=== PATIENT | female | born 1990 | race African-American/Black ===

== ENCOUNTER 2016-08-11 08:56 | Emergency (ER) | payer MEDICAID ==
[~2016-08-11] VITALS: Ht 165.1 cm; Wt 105.0 kg
[~2016-08-11 08:56] MED LIST: AUGM875T PO
[2016-08-11 08:57] VITALS: BP 139/74; PULSE 85; RESP 15; TEMP 98.1; O2SAT 100
--- NOTE | 2016-08-11 09:36 | PD ---
HPI Chief Complaint: Lump, Cyst, Hernia Time Seen by Provider: 09:31 Travel History International Travel<30 days: No Contact w/Intl Traveler<30days: No Traveled to known affect area: No History of Present Illness HPI 26-year-old female presents to the emergency Department with complaint of a lump under her right breast that is painful that she noticed last night. She denies fever, chills, nausea, vomiting. Denies nipple discharge, change in skin of the breast. Has not taken any medications or tried any treatments to alleviate her symptoms. Pain is aggravated with movement of the breast and palpation. No known relieving factors. No known allergies. Does not have primary care provider. Currently has Mirena for contraception. Denies significant past medical history. No other modifying factors or associated signs and symptoms. PFSH Past Medical History ?: Not LMP: 07/30/16 Social History Alcohol Use: Yes Tobacco Use: Yes Allergies-Medications (Allergen,Severity, Reaction): Coded Allergies: No Known Allergies (Unverified , 08/11/16) Reported Meds & Prescriptions Reported Meds & Active Scripts Active Bactrim DS (Sulfamethoxazole-Trimethoprim) 800-160 Mg Tab 1 Tab PO BID 10 Days Ibuprofen 800 Mg Tab 800 Mg PO Q6HR PRN Keflex (Cephalexin) 500 Mg Cap 500 Mg PO Q6H 10 Days Review of Systems Except as stated in HPI: all other systems reviewed are Neg Physical Exam Narrative GENERAL: Well-nourished, well-developed female patient, in no acute distress; afebrile, nontoxic-appearing SKIN: There is an indurated area to the lower crease of the right breast at approximately the 6 o'clock position which measures about 2 cm in diameter. The area is without erythema. With tenderness on palpation. No nipple discharge. No skin dimpling. No axillary lymphadenopathy. HEAD: Atraumatic. Normocephalic. EYES: Pupils equal and round. No scleral icterus. No injection or drainage. ENT: Mucosa pink and moist. Airway patent. NECK: Trachea midline. CARDIOVASCULAR: Regular rate. RESPIRATORY: No accessory muscle use. GASTROINTESTINAL: Obese. MUSCULOSKELETAL: No obvious deformities. No clubbing. No cyanosis. No edema. NEUROLOGICAL: Awake and alert. Oriented 3. No obvious cranial nerve deficits. Motor grossly within normal limits. Normal speech. PSYCHIATRIC: Appropriate mood and affect; insight and judgment normal. Data Data Last Documented VS Vital Signs Date Time Temp Pulse Resp B/P Pulse Ox O2 Delivery O2 Flow Rate FiO2 08/11/16 11:39 20 08/11/16 08:57 98.1 85 139/74 100 Orders Ibuprofen (Motrin) (08/11/16 09:45) Us Breast Unilateral (08/11/16 ) Lidocaine 1% Inj (50 Ml) (Xylocaine 1% I (08/11/16 11:30) Wound Culture And Gram Stain (08/11/16 12:34) [facility] Medical Decision Making Medical Screen Exam Complete: Yes Emergency Medical Condition: Yes Medical Record Reviewed: Yes Differential Diagnosis Abscess, cyst, malignancy Narrative Course 26-year-old female with approximately 2 cm palpable lump to the 6 o'clock position of the underneath of the right breast at this crease. The areas without erythema or edema. Patient is afebrile and nontoxic-appearing. She denies fever, chills, nausea, vomiting at home. Ibuprofen administered in the ER. Right breast ultrasound ordered. 1128: Right breast ultrasound concludes a palpable abnormality that corresponds to a small hematoma or abscess; recommended treatment and follow-up to resolution with scan in 3-4 weeks. It with my attending physician, Dr. Ennis, and he recommended to needle aspiration to rule out hematoma or abscess. See my procedure note for needle aspiration. 1140: Purulent drainage aspirated during procedure. Wound culture pending. Keflex, Bactrim, ibuprofen prescribed for home. Instructed patient to follow up with general surgery and she verbalized understanding and agreement. Patient is medically cleared and stable for discharge. Discussed reasons to return to the emergency department. Instructed patient to follow up with primary care provider. Patient agrees with treatment plan. The patients vital signs are stable and the patient is stable for outpatient follow-up and treatment. Patient discharged home, stable and in no acute distress. Procedures Procedure Narrative INCISION AND DRAINAGE OF ABSCESS: The area was prepped and was sterilely draped. 1% lidocaine was used to anesthetize the area. The area was properly anesthetized. An 18 gauge needle was used to make a pinpoint puncture into the area of the abscessand pus was obtained verifying abscess. Cultures were obtained. Sterile dressing applied. Diagnosis Primary Impression: Abscess of right breast Referrals: Hari Amezcua MD General Surgeon Primary Care Physician Patient Instructions: Abscess (ED), Abscess Follow-up (ED), Abscess Incision and Drainage (ED), General Instructions Departure Forms: Tests/Procedures, Work Release Enter return to work date: Aug 12, 2016 Additional Instructions: Complete full course of antibiotics Warm compresses to the affected area Keep area clean and dry Ibuprofen or Tylenol as directed and as needed for pain and inflammation Follow-up with primary care provider Return to emergency department immediately with worsening of symptoms Med/Other Pt SpecificInfo: Prescription(s) given Scripts Sulfamethoxazole-Trimethoprim (Bactrim DS)800-160 Mg Tab1 Tab PO BID 10 Days Ref 0 Prov:Maya Bateman 08/11/16 Ibuprofen 800 Mg [id number] Mg PO Q6HR PRN (PAIN) #30 TAB Ref 0 Prov:Maya Bateman 08/11/16 Cephalexin (Keflex)500 Mg [id number] Mg PO Q6H 10 Days Ref 0 Prov:Maya Bateman 08/11/16 Disposition: 01 DISCHARGE HOME Condition: Stable Maya Bateman Aug 11, 2016 09:36
[2016-08-11] MEDS ORDERED: IBUPROFEN 800 MG TAB PO ONE (09:45)
--- NOTE | 2016-08-11 11:20 | RADRPT ---
EXAM DATE/TIME: 08/11/2016 10:07 [facility] COMPARISON: No previous studies available for comparison. INDICATIONS : Abscess. MEDICAL HISTORY : Right breast lump. SURGICAL HISTORY : None. ENCOUNTER: Initial ACUITY: 1 day PAIN SCORE: 4/10 LOCATION: Right breast. FINDINGS: Target sonogram right breast 6: 00 region a centimeters from nipple demonstrates a mixed echogenic area accounting for the palpable l ump measuring 11 x 12 x 15 mm. Minimal flow. CONCLUSION: Palpable abnormality corresponds to a small hematoma or abscess. Recommend treatment and followup to resolution with scan in 3-4 weeks. Dom Johnson MD on August 11, 2016 at 11:17 Board Certified Radiologist. This report was verified electronically.
[2016-08-11] MEDS ORDERED: LIDOCAINE HCL 1% 50 ML VIAL INFIL ONE (11:30)
[2016-08-11 11:39] VITALS: RESP 20
[2016-08-11] MEDS ORDERED: IBUP800T23 PO (12:10)
[2016-08-11] MEDS ORDERED: BACT800T5 PO (12:10)
[2016-08-11] MEDS ORDERED: CEPH-460 PO (12:10)
== END 2016-08-11 12:27 | disposition home or self-care (01) ==
LOC: NEPB 08:56
DX: N61.1 Abscess of the breast and nipple (principal); B96.4 Proteus (mirabilis) (morganii) as the cause of diseases classified elsewhere; Z72.0 Tobacco use
CPT/HCPCS: 19020; 76642; 87070; 87077; 87186

== ENCOUNTER 2016-08-14 22:18 | Emergency (ER) | payer MEDICAID ==
[~2016-08-14] VITALS: Ht 165.1 cm; Wt 100.0 kg
[~2016-08-14 22:18] MED LIST changes: -AUGM875T PO; +BACT800T5 PO; +CEPH-460 PO; +IBUP800T23 PO
[2016-08-14 22:19] VITALS: BP 118/67; PULSE 93; RESP 16; TEMP 98.7; O2SAT 100
[2016-08-14] MEDS ORDERED: BUPIVACAINE HCL PF 0.5% 30 ML VIAL EPIDURAL ONE (23:45)
[2016-08-14] MEDS ORDERED: LIDOCAINE 1%/EPINEPHrine 1:100,000 SOLN 20 ML VIAL INFIL ONE (23:45)
[2016-08-15] MEDS ORDERED: HYDR-3533 PO (00:01)
--- NOTE | 2016-08-15 00:05 | PD ---
HPI Chief Complaint: Lump, Cyst, Hernia Time Seen by Provider: 00:01 Travel History International Travel<30 days: No Contact w/Intl Traveler<30days: No Traveled to known affect area: No History of Present Illness HPI 26-year-old black female presents to emergency department with a worsening abscess under her right breast. She is on Keflex and Bactrim. Pain is moderate. No drainage. PFSH Past Medical History ?: Not LMP: 07/30/16 Social History Alcohol Use: Yes Tobacco Use: Yes Allergies-Medications (Allergen,Severity, Reaction): Coded Allergies: No Known Allergies (Unverified , 08/14/16) Reported Meds & Prescriptions Reported Meds & Active Scripts Active Bactrim DS (Sulfamethoxazole-Trimethoprim) 800-160 Mg Tab 1 Tab PO BID 10 Days Ibuprofen 800 Mg Tab 800 Mg PO Q6HR PRN Keflex (Cephalexin) 500 Mg Cap 500 Mg PO Q6H 10 Days Review of Systems Except as stated in HPI: all other systems reviewed are Neg Physical Exam Narrative GENERAL: This is a well-nourished, well-developed patient, in no apparent distress. Sabrina was present for the exam and treatment. SKIN: Patient has a 6 x 6 area of erythema, and induration under her right breast. There is a 3 x 3 cm central area of early fluctuance., ecchymoses or lesions. Warm and dry. HEAD: Atraumatic. Normocephalic. EYES: PERRL, EOMI, no discharge or injection. No scleral icterus. EARS: Clear NOSE: Nasal turbinates appear normal. THROAT: Mucosa pink and moist. Airway patent. NECK: Trachea midline. supple, moves head freely. LUNGS: Clear to auscultation. CV: Regular in rhythm. ABDOMEN: Soft nontender. EXT: No clubbing cyanosis or edema. Data Data Last Documented VS Vital Signs Date Time Temp Pulse Resp B/P Pulse Ox O2 Delivery O2 Flow Rate FiO2 08/14/16 22:19 98.7 93 16 118/67 100 Room Air Orders Lidocai-Epi 1%-1:100,000 Inj (Xylocaine- (08/14/16 23:45) Bupivacaine Pf 0.5% Inj (Marcaine Pf 0.5 (08/14/16 23:45) MDM Medical Decision Making Medical Screen Exam Complete: Yes Emergency Medical Condition: Yes Medical Record Reviewed: Yes Differential Diagnosis MDM: High Differential diagnoses: Abscess, folliculitis, cellulitis, lymphangitis, abrasion, contact dermatitis Narrative Course An incision and drainage has been performed. This is right chest wall abscess with I and D Procedures Procedure Narrative I&D abscess: After the risks and benefits were discussed the following procedure was performed. The skin is prepped and draped in the usual sterile fashion using Betadine. The abscess is anesthetized with 1% lidocaine with epinephrine 0.5% Marcaine. After adequate anesthesia, an 10 blade scalpel is used to make a 2.5 centimeter central incision. Perulant material is expressed. Loculations are broken up using curved Elaine forceps. The wound is cleansed deeply using dilute Betadine and peroxide on Q-tips. The wound is packed open using iodoform gauze. A clean dressing is applied. The patient tolerated the procedure well. There was no complications. Follow-up instructions were given to the patient. Diagnosis Primary Impression: right chest wall abscess with I and D Patient Instructions: General Instructions Additional Instructions: Rest. Elevation. keep clean and dry. remove the packing in Thursday morning.. Daily wound care with soap, water and Neosporin. Continue your antibiotics and Lortab for severe pain. Follow-up with a primary care doctor Thursday or Thursday. Return to the ER for any problems. Med/Other Pt SpecificInfo: Prescription(s) given, Wound Care Scripts Hydrocodone-Acetaminophen (Lortab)5-325 Mg Tab1 Tab PO Q4H PRN (PAIN) #12 TAB Prov:Anne Marie Da Silva MD 08/15/16 Disposition: 01 DISCHARGE HOME Condition: Stable Luiz Wetzel Aug 15, 2016 00:05
== END 2016-08-15 00:16 | disposition home or self-care (01) ==
LOC: NEPB 22:18
DX: L02.213 Cutaneous abscess of chest wall (principal); Z72.0 Tobacco use
CPT/HCPCS: 10061

== ENCOUNTER 2017-07-16 19:22 | Emergency (ER) | payer MEDICAID ==
[~2017-07-16] VITALS: Ht 165.1 cm; Wt 95.0 kg
[~2017-07-16 19:22] MED LIST changes: +HYDR-3533 PO; +IBUP1TAB7 PO; -IBUP800T23 PO
[2017-07-16 19:23] VITALS: BP 132/96; PULSE 100; RESP 16; TEMP 98.5; O2SAT 100
[2017-07-16] MEDS ORDERED: ONDANSETRON ODT 4 MG TAB PO ONE (22:15)
[2017-07-16] MEDS ORDERED: ACETAMINOPHEN 500 MG CPLT PO ONE (22:15)
--- NOTE | 2017-07-16 22:56 | PD ---
HPI Chief Complaint: Headache Time Seen by Provider: 22:04 Travel History International Travel<30 days: No Contact w/Intl Traveler<30days: No Traveled to known affect area: No History of Present Illness HPI Patient is a 27-year-old female presented to him or to come for evaluation of head pain. Patient states this started behind her right ear and radiates forward. She reports a history of the same a few years ago and was told she had a curing malformation and was supposed to see a neurologist. She states that the symptoms she has last few days is consistent with what she's had passed. She also reports nasal congestion, intermittent fevers for the last week and dizziness with position changes. She denies any nausea or vomiting today, no cough. She states that she took ibuprofen before she came to the emergency department. There are no alleviating factors, pain is exacerbated with movement. Symptom onset was gradual. She has no other complaints at this time. PFSH Past Medical History Medical History: Denies Significant Hx Headaches: Yes Neurologic: Yes (Chiari malformation) ?: Not LMP: "ON IT NOW" Past Surgical History Surgical History: No Previous Surgery Social History Alcohol Use: No Tobacco Use: Yes Substance Use: No Allergies-Medications (Allergen,Severity, Reaction): Coded Allergies: No Known Allergies (Unverified Adverse Reaction, Unknown, 07/16/17) Reported Meds & Prescriptions Reported Meds & Active Scripts Active Lortab (Hydrocodone-Acetaminophen) 5-325 Mg Tab 1 Tab PO Q4H PRN Bactrim DS (Sulfamethoxazole-Trimethoprim) 800-160 Mg Tab 1 Tab PO BID 10 Days Ibuprofen 800 Mg Tab 800 Mg PO Q6HR PRN Keflex (Cephalexin) 500 Mg Cap 500 Mg PO Q6H 10 Days Review of Systems Except as stated in HPI: all other systems reviewed are Neg Eyes: No: Photophobia, Visual changes HENT: Positive: Headaches, Congestion, Earache, No: Neck Pain Cardiovascular: No: Chest Pain or Discomfort Respiratory: No: Cough, Shortness of Breath Gastrointestinal: No: Nausea Musculoskeletal: No: Myalgias Physical Exam Narrative GENERAL: Well developed, well-nourished, alert female. Resting comfortably in no acute distress. SKIN: Warm and dry. HEAD: Atraumatic. Normocephalic. EYES: Pupils equal and round. No scleral icterus. No injection or drainage. ENT: No nasal bleeding or discharge. Mucous membranes pink and moist. Clear nasal drainage. NECK: Trachea midline. No JVD. CARDIOVASCULAR: Regular rate and rhythm. RESPIRATORY: No accessory muscle use. Clear to auscultation. Breath sounds equal bilaterally. GASTROINTESTINAL: Abdomen soft, non-tender, nondistended. Hepatic and splenic margins not palpable. MUSCULOSKELETAL: Extremities without clubbing, cyanosis, or edema. No obvious deformities. NEUROLOGICAL: Awake and alert. No obvious cranial nerve deficits. Motor grossly within normal limits. Five out of 5 muscle strength in the arms and legs. Normal speech. PSYCHIATRIC: Appropriate mood and affect; insight and judgment normal. Data Data Last Documented VS Vital Signs Date Time Temp Pulse Resp B/P (MAP) Pulse Ox O2 Delivery O2 Flow Rate FiO2 07/16/17 22:52 Room Air 07/16/17 19:23 98.5 100 16 132/96 (108) [address] Brain W/O Iv Contrast(Rout) (07/16/17 ) Influenzae A/B Antigen (07/16/17 22:11) Acetaminophen (Tylenol) (07/16/17 22:15) Ondansetron Odt (Zofran Odt) (07/16/17 22:15) Ed Urine Pregnancytest Poc (07/16/17 22:11) MDM Medical Decision Making Medical Screen Exam Complete: Yes Emergency Medical Condition: Yes Medical Record Reviewed: Yes Interpretation(s) Last Impressions Head CT 07/16/17 0000 Signed Impressions: Service Date/Time: July 23:01 - CONCLUSION: Normal examination. Javon Pena MD Vital Signs Date Time Temp Pulse Resp B/P (MAP) Pulse Ox O2 Delivery O2 Flow Rate FiO2 07/16/17 22:52 Room Air 07/16/17 19:23 98.5 100 16 132/96 (108) 100 Room Air Vital Signs Date Time Temp Pulse Resp B/P (MAP) Pulse Ox O2 Delivery O2 Flow Rate FiO2 07/16/17 19:23 98.5 100 16 132/96 (108) 100 Room Air Differential Diagnosis Sinusitis versus influenza versus otitis media versus less likely hemorrhage versus other Narrative Course She is a well-appearing 27-year-old female presenting with 2 days of head pain. There is no focal deficits noted on exam. Labs and imaging ordered and pending. Her vital signs are stable and she is afebrile. CT scan of brain is negative for acute abnormality. Patient is negative for influenza. At this time patient will be treated for an acute sinusitis as the duration of her upper respiratory symptoms has been ongoing for over a week. She was encouraged to follow up with her primary doctor. She was also encouraged to return to emergency department for any new or worsening symptoms. She was advised to continue symptomatic management which she has not done thus far. Diagnosis Primary Impression: Acute sinusitis Qualified Codes: J01.90 - Acute sinusitis, unspecified Referrals: [facility] [address] Primary Care Physician Patient Instructions: General Instructions, Sinusitis (GEN) Additional Instructions: Continue symptomatic management Follow-up with your primary doctor Complete course of antibiotics as prescribed Emergency department for any new or worsening symptoms Med/Other Pt SpecificInfo: Prescription(s) given Scripts Ibuprofen (Ibuprofen) 800 Mg Tab 800 MG PO Q6HR Y for PAIN, #40 TAB 0 Refills Prov: Tuyet Jo 07/16/17 Ipratropium Nasal (Ipratropium Nasal) 0.06% [place] 1 SPRAY EACH NARE QID, #1 BOTTLE 0 Refills Prov: Tuyet Jo 07/16/17 Amoxicillin (Amoxicillin) 875 Mg Tab 875 MG PO BID for Infection, #20 TAB 0 Refills Prov: Tuyet Jo 07/16/17 Disposition: 01 DISCHARGE HOME Condition: Stable Tuyet Jo Jul 16, 2017 22:56
--- NOTE | 2017-07-16 23:10 | RADRPT ---
EXAM DATE/TIME: 07/16/2017 23:01 [facility] COMPARISON: No previous studies available for comparison. INDICATIONS : Right sided headache. RADIATION DOSE: 56.35 CTDIvol (mGy) MEDICAL HISTORY : Chiari malformation. SURGICAL HISTORY : None. ENCOUNTER: Initial ACUITY: 2 days PAIN SCALE: 10/10 LOCATION: Right cranial TECHNIQUE: Multiple contiguous axial images were obtained of the head. Using automated exposure control and adj ustment of the mA and/or kV according to patient size, radiation dose was kept as low as reasonably a chievable to obtain optimal diagnostic quality images. DICOM format image data is available electro nically for review and comparison. FINDINGS: CONCLUSION: Normal examination. Javon Pena MD on July 16, 2017 at 23:07 Board Certified Radiologist. This report was verified electronically.
[2017-07-16] MEDS ORDERED: IPRA0.06 EACH NARE (23:44)
[2017-07-16] MEDS ORDERED: IBUP1TAB7 PO (23:44)
[2017-07-16] MEDS ORDERED: AMOX875T PO (23:44)
== END 2017-07-16 23:59 | disposition home or self-care (01) ==
LOC: NEPD 19:22
DX: J01.90 Acute sinusitis, unspecified (principal); R42 Dizziness and giddiness; G93.5 Compression of brain; Z72.0 Tobacco use
CPT/HCPCS: 70450; 84703; 87804; 99284